=== PATIENT | male | born 1975 | race African-American/Black ===

== ENCOUNTER 2017-06-15 19:00 | Emergency (ER) | payer SELFPAY ==
[2017-06-15] MEDS: ACETAMINOPHEN 325 MG TAB PO (20:47)
[2017-06-16] MEDS: OSELTAMIVIR PHOSPHATE 75 MG CAP PO (00:52)
== END 2017-06-16 00:50 | disposition home or self-care (01) ==
LOC: NEPC 19:00
DX: J10.1 Influenza due to other identified influenza virus with other respiratory manifestations (principal); G56.01 Carpal tunnel syndrome, right upper limb
CPT/HCPCS: 71046; 87804; 87804-59; 99284